=== PATIENT | male | born 1965 | race Caucasian/White ===

== ENCOUNTER 2023-02-26 19:07 | Emergency (ER) | payer MEDICAID, OTHER ==
[~2023-02-26] VITALS: Ht 167.6 cm; Wt 72.6 kg
[~2023-02-26 19:07] MED LIST: GLIP5TER PO; METF-1243 PO
[2023-02-26 19:39] VITALS: BP 126/80; PULSE 86; RESP 20; TEMP 98; O2SAT 95
[2023-02-26] MEDS ORDERED: CEPH500C16 PO (20:49)
[2023-02-26] MEDS ORDERED: BACITRACIN OINT 500 UNITS/GM PKT TP ONE (21:06)
[2023-02-26 21:19] VITALS: BP 126/80; PULSE 86; RESP 20; TEMP 98; O2SAT 95
== END 2023-02-26 21:19 | disposition home or self-care (01) ==
LOC: MED 19:07
DX: S91.331A Puncture wound without foreign body, right foot, initial encounter (principal); E11.9 Type 2 diabetes mellitus without complications; Z79.4 Long term (current) use of insulin; Z79.899 Other long term (current) drug therapy; W25.XXXA Contact with sharp glass, initial encounter; Y93.89 Activity, other specified; Y92.89 Other specified places as the place of occurrence of the external cause; Y99.8 Other external cause status
CPT/HCPCS: 99283

== ENCOUNTER 2023-07-31 09:01 | Emergency (ER) | payer OTHER ==
[~2023-07-31] VITALS: Ht 162.6 cm; Wt 70.3 kg
[~2023-07-31 09:01] MED LIST changes: +CEPH500C16 PO
[2023-07-31 09:31] VITALS: BP 154/99; PULSE 80; RESP 18; TEMP 97.7; O2SAT 97
[2023-07-31] MEDS ORDERED: IBUPROFEN 400 MG TAB PO ONE (09:45)
[2023-07-31] MEDS ORDERED: ACETAMINOPHEN 325 MG TAB PO ONE (09:45)
[2023-07-31] MEDS ORDERED: IBUP-2809 PO (10:51)
[2023-07-31] MEDS ORDERED: AMOX-1230 PO (10:51)
== END 2023-07-31 11:20 | disposition home or self-care (01) ==
LOC: MED 09:01
DX: L03.114 Cellulitis of left upper limb (principal); E11.9 Type 2 diabetes mellitus without complications; Z79.899 Other long term (current) drug therapy; Z79.1 Long term (current) use of non-steroidal anti-inflammatories (NSAID); Z79.2 Long term (current) use of antibiotics
CPT/HCPCS: 73130; 90471; 90715; 99283